=== PATIENT | female | born 1985 | race American Indian/Alaskan Native ===

== ENCOUNTER 2021-02-24 13:53 | Emergency (ER) | payer OTHER ==
[2021-02-24 14:14] VITALS: BP 110/57
--- NOTE | 2021-02-24 15:53 | Emergency Department Report ---
<BLANKA ALTAMIRANO - Last Filed: 03/07/21 10:52> ED HPI - General Chief complaint: Abdominal Pain Stated complaint: 6WKS PAIN ON RT SIDE LWR STOMACH Source: patient Mode of arrival: Ambulatory Limitations: No Limitations - History of Present Illness Initial comments: The patient was evaluated in the emergency department for symptoms described in the history of present illness. He/she was evaluated in the context of the global COVID-19 pandemic, which necessitated consideration that the patient might be at risk for infection with the virus that causes COVID-19. Institutional protocols and algorithms that pertain to the evaluation of patients at risk for COVID-19 are in a state of rapid change based on information released by regulatory bodies including the CDC and federal and state organizations. These policies and algorithms were followed during the patient's care in the emergency department. Please note that these policies, procedures and recommendations changed on a rapid basis. 35 y/o -[place] female that is 6 para 2 with 3 miscarriages presents to the emergency room stating she has been spotting this morning. Patient states her last menstrual period was 01/02/2021. Patient states that she has a history of ectopic with the loss of the left fallopian tube. States this happened about 5 months ago. Patient reports she currently takes no meds on a daily basis currently has no past medical history she is followed by the [facility] in [facility]. She has not been seen for this . MD Complaint: abdominal pain, vaginal bleeding -: This morning Location: pelvis (Right lower) Severity scale (0 -10): 5 Quality: cramping, sharp Consistency: constant Improves with: none Worsens with: none Associated symptoms: vaginal bleeding. denies: nausea/vomiting, vaginal discharge Vaginal bleeding: light :: Yes Number of weeks : 6 OB History - Current : no complications OB History - Previous Pregnancies: miscarriage Last menstrual period: 01/02/21 Pre- care: none - Related Data : 6 Para: 2 Ab: 3 Previous Rx's Medication Instructions Recorded Last Taken Type Vit-Fe Fumar-FA [ 1 tab PO QDAY #90 tablet 02/24/21 Unknown Rx Vitamin] Allergies Allergy/AdvReac Type Severity Reaction Status Date / Time nickel AdvReac Hives Verified 02/24/21 14:14 ED Review of Systems Comment: All other systems reviewed and negative ED Past Medical Hx - Medications Home Medications: Home Medications Medication Instructions Recorded Confirmed Last Taken Type Vit-Fe Fumar-FA [ 1 tab PO QDAY #90 tablet 02/24/21 Unknown Rx Vitamin] ED Physical Exam - General Limitations: No Limitations General appearance: alert, in no apparent distress - Head Head exam: Present: atraumatic, normocephalic - Eye Eye exam: Present: normal appearance - ENT ENT exam: Present: mucous membranes moist - Neck Neck exam: Present: normal inspection - Respiratory Respiratory exam: Present: normal lung sounds bilaterally. Absent: respiratory distress - Cardiovascular Cardiovascular Exam: Present: normal rhythm, tachycardia. Absent: systolic murmur, diastolic murmur, rubs, gallop - GI/Abdominal GI/Abdominal exam: Present: soft, tenderness (rt), normal bowel sounds. Absent: distended - Extremities Exam Extremities exam: Present: normal inspection - Back Exam Back exam: Present: normal inspection - Neurological Exam Neurological exam: Present: alert, oriented X3 - Psychiatric Psychiatric exam: Present: normal affect, normal mood - Skin Skin exam: Present: warm, dry, intact, normal color. Absent: rash ED Medical Decision Making - Lab Data Result diagrams: 02/24/21 15:40 02/24/21 15:40 Laboratory Tests 02/24/21 02/24/21 02/24/21 15:40 15:40 15:40 WBC 9.3 RBC 3.80 Hgb 11.9 Hct 34.8 MCV 92 MCH 31 MCHC 34 RDW 13.3 Plt Count 180 Sodium 135 L Potassium 4.3 Chloride 101.7 Carbon Dioxide 22 Anion Gap 16 BUN 6 L Creatinine 0.6 Estimated GFR > 60 BUN/Creatinine Ratio 10 Glucose 93 Calcium 9.2 Total Bilirubin < 0.20 AST 11 ALT 11 Alkaline Phosphatase 77 Total Protein 7.2 Albumin 4.0 Albumin/Globulin Ratio 1.3 HCG, Quant 99601 H Urine Color Urine Turbidity Urine pH Ur Specific [place] Urine Protein Urine Glucose (UA) Urine Ketones Urine Blood Urine Nitrite Urine Bilirubin Urine Urobilinogen Ur Leukocyte Esterase Urine WBC (Auto) Urine RBC (Auto) U Epithel Cells (Auto) Urine Mucus Blood Type Ord Rhogam Gestat Weeks 02/24/21 02/24/21 15:40 Unknown WBC RBC Hgb Hct MCV MCH MCHC RDW Plt Count Sodium Potassium Chloride Carbon Dioxide Anion Gap BUN Creatinine Estimated GFR BUN/Creatinine Ratio Glucose Calcium Total Bilirubin AST ALT Alkaline Phosphatase Total Protein Albumin Albumin/Globulin Ratio HCG, Quant Urine Color Yellow Urine Turbidity Hazy Urine pH 6.0 Ur Specific [place] 1.021 Urine Protein <15 mg/dl Urine Glucose (UA) Neg Urine Ketones Neg Urine Blood Neg Urine Nitrite Neg Urine Bilirubin Neg Urine Urobilinogen 2.0 Ur Leukocyte Esterase Neg Urine WBC (Auto) 1.0 Urine RBC (Auto) 2.0 U Epithel Cells (Auto) 10.0 Urine Mucus Few Blood Type O POSITIVE Ord Rhogam Gestat Weeks Rh pos - Radiology Data Radiology results: report reviewed [facility] [address] [place] [address] Ultrasound Report Signed Patient: MARKY MARTE MR#: [id number] : 1985 Acct:[id number] Age/Sex: 35 / F ADM Date: 02/24/21 Loc: ED Attending Dr: Ordering Physician: RHONA BARNETT Date of Service: 02/24/21 Procedure(s): US OB transvaginal Accession Number(s): [id number] cc: RHONA BARNETT TRANSABDOMINAL AND TRANSVAGINAL OB PELVIC ULTRASOUND INDICATION / CLINICAL INFORMATION: Pelvic pain and vaginal spotting. COMPARISON: None available. FINDINGS: TRANSABDOMINAL: The uterus measures approximately 10.4 x 4.9 x 6.5 cm. There is an intrauterine gestational sac with a pole measuring 8 weeks 1 day by crown-rump length. The heart rate is 170 bpm. A yolk sac is present. There is no evidence of implantation hemorrhage. The right ovary measures 3.7 x 2.3 x 1.9 cm and contains a 2.2 cm complex corpus luteal cyst. The left ovary is not seen. No free fluid is identified. TRANSVAGINAL: There is an intrauterine gestational sac with a pole measuring 8 weeks by crown-rump length. The heart rate is 171 bpm. There is no evidence of implantation hemorrhage. A small corpus luteal cyst in the right ovary measures approximately 1.6 cm. The left ovary is not seen. There is no evidence of an extraovarian mass or free fluid. IMPRESSION: Single viable 8 week intrauterine without complication. Signer Name: Raudel Herman MD Signed: 02/24/2021 8:40 PM Workstation Name: [id number] Transcribed By: RT Dictated By: Raudel Herman MD Electronically Authenticated By: Raudel Herman MD Signed Date/Time: 02/24/212039 DD/ 36 TD/TT: - Medical Decision Making 35 y/o -[place] female that is 6 para 2 with 3 miscarriages presents to the emergency room stating she has been spotting this morning. Patient states her last menstrual period was 01/02/2021. Patient states that she has a history of ectopic with the loss of the left fallopian tube. States this happened about 5 months ago. Patient reports she currently takes no meds on a daily basis currently has no past medical history she is followed by the [facility] in [facility]. She has not been seen for this . protocol. CBC CMP ED RhoGam hCG serum, urinalysis. Vitals are stable labs are stable ultrasound shows 6-week gestational sac. Patient will be placed on vitamins and follow-up in [facility]. ED Disposition Clinical Impression: , Threatened Disposition: HOME / SELF CARE / HOMELESS Is pt being admited?: No Does the pt Need Aspirin: No Condition: Stable Instructions: Abdominal Pain (ED) Prescriptions: Vit-Fe Fumar-FA [ Vitamin] 1 tab PO QDAY #90 tablet Referrals: KASH TIWARI [Primary Care Provider] - 3-5 Days <DEBBIE ODONNELL - Last Filed: 03/07/21 21:24> ED Review of Systems ROS: Stated complaint: 6WKS PAIN ON RT SIDE LWR STOMACH Other details as noted in HPI ED Course Vital Signs 02/24/21 14:13 Temperature 98.2 F Pulse Rate 100 H Respiratory 16 Rate Blood Pressure 110/57 [Left] O2 Sat by Pulse 100 Oximetry ED Medical Decision Making - Lab Data Result diagrams: 02/24/21 15:40 02/24/21 15:40 Critical care attestation.: If time is entered above; I have spent that time in minutes in the direct care of this critically ill patient, excluding procedure time.
[2021-02-24 16:10] LABS: Bilirubin,Urine NEG (Negative); Blood,Urine NEG (Negative); Color,Urine Yellow (Yellow); Mucus,Urine FEW /HPF; Protein,Urine <15 mg/dL mg/dL (Negative)
[2021-02-24 16:11] LABS: Hematocrit 34.8 % (30.3-42.9); Hemoglobin 11.9 gm/dl (10.1-14.3); Mean Corpuscular HGB Conc 34 % (30-34); Mean Corpuscular Volume 92 fl (79-97); Platelet Count 180 K/mm3 (140-440); Red Cell Distribution Width 13.3 % (13.2-15.2)
[2021-02-24 16:19] LABS: Alanine Aminotransferase 11 units/L (7-56); Blood Urea Nitrogen 6 mg/dL (7-17); Calcium 9.2 mg/dL (8.4-10.2); Hemolysis Index 14
[2021-02-24 16:26] LABS: BUN/Creatinine Ratio 10
--- NOTE | 2021-02-24 20:45 | Ultrasound Report ---
TRANSABDOMINAL AND TRANSVAGINAL OB PELVIC ULTRASOUND INDICATION / CLINICAL INFORMATION: Pelvic pain and vaginal spotting. COMPARISON: None available. FINDINGS: TRANSABDOMINAL: The uterus measures approximately 10.4 x 4.9 x 6.5 cm. There is an intrauterine gesta tional sac with a pole measuring 8 weeks 1 day by crown-rump length. The heart rate is 17 0 bpm. A yolk sac is present. There is no evidence of implantation hemorrhage. The right ovary measures 3.7 x 2.3 x 1.9 cm and contains a 2.2 cm complex corpus luteal cyst. The lef t ovary is not seen. No free fluid is identified. TRANSVAGINAL: There is an intrauterine gestational sac with a pole measuring 8 weeks by crown-r ump length. The heart rate is 171 bpm. There is no evidence of implantation hemorrhage. A small corpus luteal cyst in the right ovary measures approximately 1.6 cm. The left ovary is not seen. The re is no evidence of an extraovarian mass or free fluid. IMPRESSION: Single viable 8 week intrauterine without complication. Signer Name: Raudel Herman MD Signed: 02/24/2021 8:40 PM Workstation Name: [id number]
== END 2021-02-24 21:37 | disposition home or self-care (01) ==
LOC: ED 13:53
DX: O20.9 Hemorrhage in early pregnancy, unspecified (principal); O26.891 Other specified pregnancy related conditions, first trimester; R10.2 Pelvic and perineal pain; Z3A.01 Less than 8 weeks gestation of pregnancy; Z91.048 Other nonmedicinal substance allergy status
CPT/HCPCS: 36415; 76801; 76817; 80053; 81001; 84702; 85027; 86900; 86901; 99284